=== PATIENT | male | born 1960 | race Caucasian/White ===

== ENCOUNTER 2020-05-03 13:04 | Emergency (ER) | payer BC ==
[~2020-05-03] VITALS: Ht 175.3 cm; Wt 89.4 kg
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
--- NOTE | 2020-05-03 13:17 | NUR ---
SEEN AND EXAMINED BY .
[2020-05-03] MEDS ORDERED: ACETAMINOPHEN 325 MG TABLET PO ONE (13:30)
[2020-05-03] MEDS ORDERED: ACETAMINOPHEN 325 MG TABLET ONE (13:46)
[2020-05-03] MEDS ORDERED: KETOROLAC TROMETHAMINE INJ 60 MG/2 ML VIAL IM ONE ×2 (14:28→14:30)
[2020-05-03] MEDS ORDERED: HYDR-4275 PO (15:26)
[2020-05-03] MEDS ORDERED: NAPR-431 PO (15:26)
[2020-05-03] MEDS ORDERED: CYCL10TA9 PO (15:26)
[2020-05-03 15:41] VITALS: BP 132/78
--- NOTE | 2020-05-03 15:41 | NUR ---
Patient discharged to home in stable condition. Written and verbal after care instructions given. Patient verbalizes understanding of instruction.
== END 2020-05-03 15:41 | disposition home or self-care (01) ==
LOC: ER 13:06
DX: S20.212A Contusion of left front wall of thorax, initial encounter (principal); F41.9 Anxiety disorder, unspecified; Z88.1 Allergy status to other antibiotic agents; V19.88XA Pedal cyclist (driver) (passenger) injured in other specified transport accidents, initial encounter; Y93.89 Activity, other specified; Y92.89 Other specified places as the place of occurrence of the external cause; Y99.8 Other external cause status
CPT/HCPCS: 71045; 71250; 96372; 99284; J1885